=== PATIENT | female | born 1965 | race Caucasian/White ===

== ENCOUNTER 2017-12-06 09:03 | Day surgery (SDC) | payer OTHER | END 2017-12-06 15:00 | disposition home or self-care (01) | LOC: AMB-ENDOS 09:03 | DX: Z85.038 Personal history of other malignant neoplasm of large intestine (principal) ==

== ENCOUNTER 2017-12-11 10:23 | Emergency (ER) | payer OTHER ==
[~2017-12-11] VITALS: Ht 147.3 cm; Wt 57.6 kg
[2017-12-11] MEDS ORDERED: ALTACE5 MG (10:55)
[2017-12-11] MEDS ORDERED: SYNTHROID50 MCG (10:55)
[2017-12-11] MEDS ORDERED: ZYRTEC10 MG PO (12:25)
[2017-12-11] MEDS ORDERED: DUI500 PO (12:25)
== END 2017-12-11 12:29 | disposition home or self-care (01) ==
LOC: ER 10:23
DX: L02.416 Cutaneous abscess of left lower limb (principal)

== ENCOUNTER 2018-12-25 08:16 | Outpatient (CLI) | payer OTHER ==
[~2018-12-25 08:16] MED LIST: ALTACE5 MG; DUI500 PO; SYNTHROID50 MCG; ZYRTEC10 MG PO
== END 2018-12-25 08:31 | disposition home or self-care (01) ==
LOC: NUCLEAR 08:16
DX: R97.1 Elevated cancer antigen 125 [CA 125] (principal); Q61.01 Congenital single renal cyst; Z85.038 Personal history of other malignant neoplasm of large intestine; N83.291 Other ovarian cyst, right side; N20.0 Calculus of kidney
CPT/HCPCS: 78815; A9552

== ENCOUNTER 2019-04-24 06:30 | Day surgery (SDC) | payer OTHER | END 2019-04-24 13:10 | disposition home or self-care (01) | LOC: AMB-ENDOS 06:30 | DX: K29.40 Chronic atrophic gastritis without bleeding (principal); K31.89 Other diseases of stomach and duodenum; K44.9 Diaphragmatic hernia without obstruction or gangrene ==

== ENCOUNTER 2020-07-15 08:48 | Day surgery (SDC) | payer OTHER | END 2020-07-15 15:00 | disposition home or self-care (01) | LOC: AMB-ENDOS 08:48 | PROVIDERS: ATTEND Colon & Rectal Surgery | DX: K62.89 Other specified diseases of anus and rectum (principal); K64.1 Second degree hemorrhoids; Z20.828 Contact with and (suspected) exposure to other viral communicable diseases ==